=== PATIENT | female | born 1990 | race American Indian/Alaskan Native ===

== ENCOUNTER 2018-03-15 10:07 | Emergency (ER) | payer OTHER ==
--- NOTE | 2018-03-15 11:57 | Emergency Department Report ---
Blank Doc - Documentation Documentation: Patient is a 27-year-old female whose presenting with 6 weeks of vaginal bleeding. Patient states initially she was having spotting now she is having heavy bleeding where she strained her pad every 2 hours. Patient also does have some mild lightheadedness. Patient had a D and see 6 weeks ago. Patient was and had an elective . Patient was proximally 7 weeks at that time. Patient denies any fevers but does have some crampy lower abdominal discomfort. Patient taken for ultrasound rule out retained products of conception. Labs were drawn to ensure that she is not anemic to the point where she needs a blood transfusion. Patient will be reassessed Ly
[2018-03-15 12:44] LABS: Hematocrit 34.3 % (30.3-42.9); Hemoglobin 11.3 gm/dl (10.1-14.3); Mean Corpuscular HGB Conc 33 % (30-34); Mean Corpuscular Hemoglobin 30 pg (28-32); Mean Corpuscular Volume 90 fl (79-97); Platelet Count 306 K/mm3 (140-440); Red Blood Count 3.82 M/mm3 (3.65-5.03); Red Cell Distribution Width 12.7 % (13.2-15.2)
[2018-03-15 12:55] LABS: BUN/Creatinine Ratio 8; Blood Urea Nitrogen 7 mg/dL (7-17); Calcium 9.1 mg/dL (8.4-10.2); Hemolysis Index 5
[2018-03-15 13:28] LABS: Bacteria,Urine 1+ /HPF (Negative); Bilirubin,Urine NEG (Negative); Blood,Urine MOD (Negative); Color,Urine Yellow (Yellow); Mucus,Urine 1+ /HPF
[2018-03-15 13:42] LABS: Band Neutrophils # (Manual) 0.2 K/mm3; Basophils % (Manual) 0 % (0.0-1.8); Eosinophils % (Manual) 0 % (0.0-4.3); Large Platelets Few; Monocytes % (Manual) 0 % (0.0-7.3); RBC Morphology Normal; Total Cells Counted 100
--- NOTE | 2018-03-15 14:24 | Ultrasound Report ---
Pelvic and transvaginal sonography: History: Status post DC 6wks of having bleeding. Rule out Retained proximal conceptus. Findings: Uterus measures 8 x 6 measures 6.2 cm. Endometrial thickness is 1.1 mm. Heterogeneous endometrium which appears vascular. Right ovary 3.4 x 1.9 x 2.5 cm. No mass. Left ovary 5.3 x 3 x 4.2 cm. Complex cyst left ovary measures 2 cm. Minimal fluid in the cul-de-sac. Impression: Endometrial findings suggestive of retained products of conceptus. Complex cyst left ovary.
--- NOTE | 2018-03-15 14:54 | Emergency Department Report ---
ED Female HPI - General Chief complaint: Vaginal Bleeding Stated complaint: HEAVY BLEDDING FROM Time Seen by Provider: 03/15/18 11:48 Source: patient Mode of arrival: Ambulatory Limitations: No Limitations - History of Present Illness Initial comments: This is a 27-year-old female nontoxic, well nourished in appearance, no acute signs of distress presents to the ED with c/o of vaginal bleeding x1 month. Patient stated that she had a D/C for last month at a unknown clinic. Patient denies any dizziness, chest pain, shortness of breath, fever, chills, nausea, vomiting, headache, stiff neck. She stated that she has lower pelvic cramping. Patient denies any vaginal discharge or urinary symptoms. Patient that if she goes about 1 pad every 2 hours. Patient denies any allergies or significant past medical history. MD Complaint: vaginal bleeding -: month(s) (1) Radiation: non-radiating Severity: mild Severity scale (0 -10): 3 Quality: cramping Consistency: constant Improves with: none Worsens with: none Associated Symptoms: vaginal bleeding. denies: vaginal discharge, abdominal pain, nausea/vomiting, fever/chills, headaches, loss of appetite, dysuria, hematuria, rash, seizure, shortness of breath, syncope, weakness - Related Data Previous Rx's Medication Instructions Recorded Last Taken Type Ibuprofen [Motrin] 400 mg PO Q8H PRN #20 tablet 08/15/14 Unknown Rx Ibuprofen [Motrin] 600 mg PO Q8H PRN #30 tablet 03/15/18 Unknown Rx Sulfamethoxazole/Trimethoprim 1 each PO BID #14 tablet 03/15/18 Unknown Rx [Bactrim DS TAB] Allergies Allergy/AdvReac Type Severity Reaction Status Date / Time No Known Allergies Allergy Verified 03/15/18 10:15 ED Review of Systems ROS: Stated complaint: HEAVY BLEDDING FROM Other details as noted in HPI Constitutional: denies: chills, fever Eyes: denies: eye pain, eye discharge, vision change ENT: denies: ear pain, throat pain Respiratory: denies: cough, shortness of breath, wheezing Cardiovascular: denies: chest pain, palpitations Endocrine: no symptoms reported Gastrointestinal: denies: abdominal pain, nausea, diarrhea Genitourinary: abnormal menses. denies: urgency, dysuria, discharge Musculoskeletal: denies: back pain, joint swelling, arthralgia Skin: denies: rash, lesions Neurological: denies: headache, weakness, paresthesias Psychiatric: denies: anxiety, depression Hematological/Lymphatic: denies: easy bleeding, easy bruising ED Past Medical Hx - Past Medical History Previous Medical History?: No - Surgical History Past Surgical History?: Yes Additional Surgical History: , - Social History Smoking Status: Never Smoker Substance Use Type: None - Medications Home Medications: Home Medications Medication Instructions Recorded Confirmed Last Taken Type Ibuprofen [Motrin] 400 mg PO Q8H PRN #20 tablet 08/15/14 Unknown Rx Ibuprofen [Motrin] 600 mg PO Q8H PRN #30 tablet 03/15/18 Unknown Rx Sulfamethoxazole/Trimethoprim 1 each PO BID #14 tablet 03/15/18 Unknown Rx [Bactrim DS TAB] ED Physical Exam - General Limitations: No Limitations General appearance: alert, in no apparent distress - Head Head exam: Present: atraumatic, normocephalic - Eye Eye exam: Present: normal appearance Pupils: Present: normal accommodation - ENT ENT exam: Present: normal exam, mucous membranes moist - Neck Neck exam: Present: normal inspection, full ROM. Absent: tenderness, meningismus, lymphadenopathy - Respiratory Respiratory exam: Present: normal lung sounds bilaterally. Absent: respiratory distress, wheezes, rales, rhonchi, stridor, chest wall tenderness, accessory muscle use, decreased breath sounds, prolonged expiratory - Cardiovascular Cardiovascular Exam: Present: regular rate, normal rhythm, normal heart sounds. Absent: irregular rhythm, systolic murmur, diastolic murmur, rubs, gallop - GI/Abdominal GI/Abdominal exam: Present: soft, normal bowel sounds. Absent: distended, tenderness, guarding, rebound, rigid, diminished bowel sounds - Rectal Rectal exam: Present: deferred - Extremities Exam Extremities exam: Present: normal inspection, full ROM, normal capillary refill. Absent: tenderness - Back Exam Back exam: Present: normal inspection, full ROM - Neurological Exam Neurological exam: Present: alert, oriented X3, normal gait - Psychiatric Psychiatric exam: Present: normal affect, normal mood - Skin Skin exam: Present: warm, dry, intact, normal color. Absent: rash ED Course Vital Signs 03/15/18 10:15 Temperature 98.1 F Pulse Rate 107 H Respiratory 18 Rate Blood Pressure 114/60 O2 Sat by Pulse 99 Oximetry - Reevaluation(s) Reevaluation #1: 03/15/18 14:58 Patient is speaking in full sentences with no signs of distress noted. - Consultations Consultation #1: 03/15/18 14:31 Patient has been consulted with Dr. Ruvalcaba about patient history, physical exam , and labs and examined and screened patient and agrees to ED plan of care. Consultation #2: 03/15/18 15:57 Patient has been consulted with Juan Luis Wilcox (OBN/ICU MANAGER oncall) about patient history, physical exam, and labs/Us report and stated to have patient f/u in his office in 3-5 days. ED Medical Decision Making - Lab Data Result diagrams: 03/15/18 12:15 03/15/18 12:15 - Medical Decision Making This is a 27-year-old female presents with retained products of conceptus and UTI. Patient is stable and was examined by me and Dr. Ruvalcaba. Dr. Monroe from [facility] on-call physician has been consulted and stated that patient is to follow -up in his office in 3-5 days. Normal abdominal exam. US OB obtained and dictated by the radiologist with products of coneptus. Ua obtained. Quantative serum test obtained. Patient notified of the US report with no questions noted by the patient. Labs obtained. Patient was referred to Follow-up with a OB/ ICU MANAGER in 3-5 days or if symptoms worsen and continue return to emergency room as soon as possible. At time of discharge, the patient does not seem toxic or ill in appearance. No acute signs of distress noted. Patient agrees to discharge treatment plan of care. No further questions noted by the patient. Critical care attestation.: If time is entered above; I have spent that time in minutes in the direct care of this critically ill patient, excluding procedure time. ED Disposition Clinical Impression: Retained products of conception UTI (urinary tract infection) Qualifiers: Urinary tract infection type: site unspecified Hematuria presence: with hematuria Qualified Code(s): N39.0 - Urinary tract infection, site not specified ; R31.9 - Hematuria, unspecified Disposition: DC-01 TO HOME OR SELFCARE Is pt being admited?: No Does the pt Need Aspirin: No Condition: Stable Instructions: Dilation and Curettage (ED), Urinary Tract Infection in Women (ED ), Sulfamethoxazole/Trimethoprim (By mouth) Additional Instructions: Follow-up with a [facility] doctor in 3-5 days or if symptoms worsen and continue return to emergency room as soon as possible. Prescriptions: Ibuprofen [Motrin] 600 mg PO Q8H PRN #30 tablet PRN Reason: Pain Sulfamethoxazole/Trimethoprim [Bactrim DS TAB] 1 each PO BID #14 tablet Referrals: PRIMARY CAREMD [Primary Care Provider] - 3-5 Days SHANI MONROE MD [Staff Physician] - 3-5 Days [facility] [Provider Group] - 3-5 Days [facility] [Outside] - 3-5 Days [facility] [Outside] - 3-5 Days Forms: Work/School Release Form(ED)
[2018-03-15 16:22] VITALS: BP 120/54
== END 2018-03-15 16:21 | disposition home or self-care (01) ==
LOC: ED 10:07
DX: O73.1 Retained portions of placenta and membranes, without hemorrhage (principal); O23.40 Unspecified infection of urinary tract in pregnancy, unspecified trimester; Z3A.00 Weeks of gestation of pregnancy not specified
CPT/HCPCS: 36415; 76830; 76856; 80048; 81001; 84702; 84703; 85007; 85025; 87086; 99284

== ENCOUNTER 2021-05-09 09:26 | Outpatient (CLI) | payer MEDICAID ==
[2021-05-09] MEDS ORDERED: LACTATED RINGERS 500 ML IV ONE (10:15)
[2021-05-09 10:29] VITALS: BP 101/57
[2021-05-09 10:46] LABS: Bilirubin,Urine NEG (Negative); Blood,Urine NEG (Negative); Color,Urine Yellow (Yellow); Mucus,Urine 3+ /HPF
[2021-05-09] MEDS ORDERED: ACETAMINOPHEN 325 MG TAB PO NR (11:00)
[2021-05-09] MEDS ORDERED: BICITRA ORAL LIQD 30ML PO ONE (11:30)
[2021-05-09] MEDS ORDERED: METOCLOPRAMIDE 10 MG/2 ML INJ IV ONE (11:30)
== END 2021-05-09 11:27 | disposition home or self-care (01) ==
LOC: TRG 09:26 → APU 09:30 → TRG 11:27
PROVIDERS: ATTEND Obstetrics & Gynecology
DX: O26.892 Other specified pregnancy related conditions, second trimester (principal); R07.9 Chest pain, unspecified; Z3A.22 22 weeks gestation of pregnancy; Z87.891 Personal history of nicotine dependence
CPT/HCPCS: 59025; 81001; 96365; J2765; 96374